=== PATIENT | female | born 1975 | race Caucasian/White ===

== ENCOUNTER 2023-06-19 10:43 | Emergency (ER) | payer BC ==
[~2023-06-19] VITALS: Ht 152.4 cm; Wt 67.1 kg
[2023-06-19 10:58] VITALS: BP 115/65; PULSE 78; RESP 16; TEMP 97.4; O2SAT 100
[2023-06-19 11:42] VITALS: BP 127/80; PULSE 83; RESP 18; TEMP 98; O2SAT 100
[2023-06-19] MEDS ORDERED: HYD2.5O TP (12:15)
== END 2023-06-19 12:38 | disposition home or self-care (01) ==
LOC: MED 10:43
DX: L30.9 Dermatitis, unspecified (principal); E11.65 Type 2 diabetes mellitus with hyperglycemia; Z79.4 Long term (current) use of insulin; Z79.899 Other long term (current) drug therapy
CPT/HCPCS: 81002; 81025; 82948; 99284